=== PATIENT | female | born 1985 | race Caucasian/White ===

== ENCOUNTER 2022-10-07 16:55 | Emergency (ER) | payer MEDICAID ==
[~2022-10-07] VITALS: Ht 167.6 cm; Wt 172.7 kg
[2022-10-07 16:58] VITALS: BP 159/115
[2022-10-07] MEDS ORDERED: DEXT354L PO (17:00)
[2022-10-07] MEDS ORDERED: LEVO112T4 PO (17:00)
[2022-10-07] MEDS ORDERED: ACET-2247 PO (17:00)
[2022-10-07] MEDS ORDERED: FLUT16SP NASAL (17:00)
[2022-10-07] MEDS ORDERED: IBUP-45 PO (17:00)
[2022-10-07 17:20] LABS: COVID AG,FIA SOURCE NASAL SWAB
[2022-10-07 17:56] LABS: INFLUENZA TYPE A NEGATIVE FOR TYPE A (NEGATIVE); INFLUENZA TYPE B NEGATIVE FOR TYPE B (NEGATIVE)
[2022-10-07] MEDS ORDERED: BENZ-39 PO (19:08)
[2022-10-07] MEDS ORDERED: AZIT250T9 PO (19:08)
[2022-10-07] MEDS ORDERED: ALBU8HFA IH (19:09)
== END 2022-10-07 19:35 | disposition home or self-care (01) ==
LOC: EMS 16:55
DX: J40 Bronchitis, not specified as acute or chronic (principal); J06.9 Acute upper respiratory infection, unspecified; E11.9 Type 2 diabetes mellitus without complications; E05.90 Thyrotoxicosis, unspecified without thyrotoxic crisis or storm; F17.210 Nicotine dependence, cigarettes, uncomplicated; Z88.0 Allergy status to penicillin; Z90.49 Acquired absence of other specified parts of digestive tract; Z90.89 Acquired absence of other organs; Z20.822 Contact with and (suspected) exposure to COVID-19
CPT/HCPCS: 82962; 87804; 99283